=== PATIENT | male | born 1960 | race Caucasian/White ===

== ENCOUNTER 2019-04-05 08:15 | Day surgery (SDC) | payer BC ==
[2019-04-05] MEDS ORDERED: LIDOCAINE 2% MDV (20MG/ML) 20ML VIAL IV ONE (08:16)
[2019-04-05] MEDS ORDERED: PROPOFOL 10 MG/ML VIAL IV ONE (08:16)
--- NOTE | 2019-04-06 07:50 | Operative Note ---
OPERATION: COLONOSCOPY to the cecum with cold snare polypectomy x4 and Endoclip placement x2. INDICATION: Colorectal cancer screening. This is the patient's first examination. ANESTHESIA: Intravenous sedation was administered by the department of anesthesiology and included Diprivan titrated to effect. PROCEDURE: Following informed consent from this alert individual including a discussion of the risks and benefits of the procedure and an opportunity for the patient to ask questions, the patient was in the left lateral decubitus position. A digital rectal examination was performed. No abnormalities were noted. Following this, the Olympus [id number] video colonoscope was inserted into the rectum without resistance. The rectal mucosa had a normal appearance with normal folds and distensibility. The colonoscope was advanced up through the bowel to the level of the cecum without much difficulty. Throughout the bowel the mucosa appeared normal, the folds were normal, and the bowel was fairly well distensible. The colon preparation was adequate. There were maybe a few small diverticula noted in the sigmoid colon. The cecum was reached by noting the cecal base and ileocecal valve. From the base of the cecum, the colonoscope was slowly withdrawn. There was a 7 mm polyp noted in the proximal ascending colon which was removed with cold snare polypectomy. There were 2 additional 5 mm polyps noted in the ascending colon removed with cold snare polypectomy as well. All polyps were suctioned through the colonoscope into a collection trap. The colonoscope was then further withdrawn. At the distal sigmoid colon there was a semi-pedunculated 7-8 mm polyp noted which was removed with cold snare polypectomy and suctioned through the colonoscope into a collection trap. Two Endoclips were placed at the polypectomy site to prevent bleeding. Retroflexion in the rectum was endoscopically unremarkable. The instrument was straightened and withdrawn. The patient tolerated the procedure well and was returned to the recovery area in stable condition. IMPRESSION: 1. A 7-8 mm distal sigmoid colon polyp removed with cold snare polypectomy. 2. Three ascending colon polyps measuring 5-7 mm in size removed with cold snare polypectomy. 3. Small diverticulum in the sigmoid colon. RECOMMENDATIONS: Further recommendations will be forthcoming pending results of pathology obtained today. The patient most likely will require recheck colonoscopy in 3 years' time. Followup will also be with Dr. Weiner. As always, thank you for allowing me to participate in the care of your patient. SANTOS
== END 2019-04-05 10:45 | disposition home or self-care (01) ==
LOC: HOP 08:15
PROVIDERS: ATTEND Internal Medicine Gastroenterology
DX: Z12.11 Encounter for screening for malignant neoplasm of colon (principal); D12.2 Benign neoplasm of ascending colon; D12.5 Benign neoplasm of sigmoid colon; K57.30 Diverticulosis of large intestine without perforation or abscess without bleeding; I10 Essential (primary) hypertension; E78.00 Pure hypercholesterolemia, unspecified; E11.9 Type 2 diabetes mellitus without complications